=== PATIENT | male | born 1950 | race Asian ===

== ENCOUNTER 2019-11-27 19:46 | Emergency (ER) | payer OTHER ==
[~2019-11-27] VITALS: Ht 188 cm; Wt 60.8 kg
[2019-11-27 20:33] LABS: PLATELET COUNT 181 K/uL (142-355)
[2019-11-27 20:45] VITALS: BP 164/81; TEMP 98.1
[2019-11-27 20:51] LABS: POTASSIUM 3.7 mmol/L (3.6-5.2)
[2019-11-27] MEDS ORDERED: SEROQUEL25 MG PO (22:57)
[2019-11-27] MEDS ORDERED: ALBUTEROL0.083 % INH (23:04)
== END 2019-11-27 20:45 | disposition other institution (70) ==
LOC: ED 19:46
PROVIDERS: Family Medicine
DX: F03.91 Unspecified dementia, unspecified severity, with behavioral disturbance (principal); Z04.6 Encounter for general psychiatric examination, requested by authority
CPT/HCPCS: 80053; 85027; 93005; 99283